=== PATIENT | male | born 1955 | race Caucasian/White ===

== ENCOUNTER 2016-09-01 11:26 | Inpatient (IN) | payer OTHER ==
[2016-09-01] VITALS (10 sets, daily range): BP systolic 127–170; BP diastolic 76–96; PULSE 72–79; RESP 16–19; TEMP 98.2–98.7; O2SAT 95–100
[~2016-09-01 11:26] MED LIST: ASPI81TA81; FISH1000; METF500T PO; MULTTAB6; ZOCO40TA PO
[2016-09-01] MEDS ORDERED: DIPHTH/TETANUS/ACEL PERTUSSIS (BOOSTER) 0.5 ML VIAL/PFS IM ONE (11:35)
[2016-09-01] MEDS ORDERED: MORPHINE SULFATE 8 MG/ML INJ ONE (11:35)
[2016-09-01] MEDS ORDERED: ceFAZolin 2 GM PREMIX 50 ML ONE (11:35)
[2016-09-01] MEDS ORDERED: ONDANSETRON HCL 4 MG/2 ML VIAL ONE (11:35)
[2016-09-01 11:52] LABS: I-STAT POTASSIUM 3.8 MMOL/L (3.5-4.9)
[2016-09-01 11:55] LABS: AUTOMATED NEUTROPHIL # 3.2 TH/MM3 (1.8-7.7); BASOPHIL % 0.4 % (0.0-2.0); EOSINOPHIL # 0.1 TH/MM3 (0-0.4); EOSINOPHIL % 1.1 % (0.0-4.0); HEMO FLAGS DIFF FINAL; LYMPH % 37.9 % (9.0-44.0); LYMPHOCYTE # 2.3 TH/MM3 (1.0-4.8); MEAN CORPUSCULAR HEMOGLOBIN 30.5 PG (27.0-34.0); MEAN CORPUSCULAR HGB CONC 33.9 % (32.0-36.0); MONO % 7.8 % (0.0-8.0); NEUT % 52.8 % (16.0-70.0); PLATELET COUNT 219 TH/MM3 (150-450); RED BLOOD COUNT 4.67 MIL/MM3 (4.50-5.90); RED CELL DISTRIBUTION WIDTH 12.9 % (11.6-17.2); WHITE BLOOD COUNT 6.1 TH/MM3 (4.0-11.0)
[2016-09-01 12:13] LABS: INTERNATIONAL NORMALIZED RATIO 0.9 RATIO; PROTHROMBIN TIME - PATIENT 10.1 SEC (9.8-11.6)
[2016-09-01 12:15] LABS: APTT (PATIENT) 20.5 SEC (24.3-30.1)
[2016-09-01] MEDS ORDERED: SIMV5TAB3 PO (12:17)
[2016-09-01] MEDS ORDERED: METF500T PO (12:17)
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
[2016-09-01] MEDS ORDERED: IOHEXOL 350 MG/ML 10 ML VIAL (for RAD DIAG) IV ONE (12:51)
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
[2016-09-01] MEDS ORDERED: MORPHINE SULFATE 4 MG/ML INJ IV PUSH ONE (13:45)
[2016-09-01] MEDS ORDERED: SODIUM CHLORIDE 0.9% FLUSH 10 ML FLUSH IV FLUSH PRN (14:15)
[2016-09-01] MEDS ORDERED: MISCELLANEOUS NURSING INFORMATION XX SCH (14:15)
[2016-09-01] MEDS ORDERED: CHLORHEXIDINE GLUCONATE 2 % 1 PACK (2 CLOTHS) TOP PRN (14:15)
[2016-09-01] MEDS ORDERED: DEXTROSE 50% IN WATER 50 ML VIAL(D50) IV PUSH PRN (14:30)
[2016-09-01] MEDS ORDERED: GLUCAGON 1 MG/ML VIAL OTHER PRN (14:30)
[2016-09-01] MEDS ORDERED: HYDROmorphone HCL PF 1 MG/ML VIAL IV PUSH PRN (14:30)
[2016-09-01] MEDS ORDERED: NALOXONE HCL 0.4 MG/ML AMP IV PRN (14:30)
[2016-09-01] MEDS ORDERED: HYDROmorphone HCL PCA 6 MG/30 ML IV SCH (14:30)
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
[2016-09-01] MEDS: INSULIN ASPART SUPPLEMENTAL SCALE SQ SCH ×2 (16:00→21:00)
[2016-09-01] MEDS: SODIUM CHLORIDE 0.9% FLUSH 10 ML FLUSH IV FLUSH SCH (21:00)
[2016-09-01] MEDS: PCA - TOTAL MG DILAUDID DELIVERED PER SHIFT OTHER SCH (22:00)
[2016-09-02] VITALS (13 sets, daily range): BP systolic 132–152; BP diastolic 79–98; PULSE 65–80; RESP 8–23; TEMP 97.8–98.3; O2SAT 92–98
[2016-09-02] MEDS: CHLORHEXIDINE GLUCONATE 2 % 1 PACK (2 CLOTHS) TOP SCH (04:00)
[2016-09-02 04:14] LABS: AUTOMATED NEUTROPHIL # 6.2 TH/MM3 (1.8-7.7); BASOPHIL % 0.2 % (0.0-2.0); EOSINOPHIL % 0.1 % (0.0-4.0); HEMATOCRIT 37.2 % (39.0-51.0); HEMO FLAGS DIFF FINAL; MEAN CELL VOLUME 90.5 FL (80.0-100.0); MEAN CORPUSCULAR HEMOGLOBIN 30.3 PG (27.0-34.0); MEAN CORPUSCULAR HGB CONC 33.5 % (32.0-36.0); MONO % 9.3 % (0.0-8.0); NEUT % 78.4 % (16.0-70.0); PLATELET COUNT 185 TH/MM3 (150-450); RED BLOOD COUNT 4.11 MIL/MM3 (4.50-5.90); RED CELL DISTRIBUTION WIDTH 13.1 % (11.6-17.2); WHITE BLOOD COUNT 7.9 TH/MM3 (4.0-11.0)
[2016-09-02 04:34] LABS: BICARBONATE 28.4 MEQ/L (21.0-32.0); POTASSIUM 4.1 MEQ/L (3.5-5.1)
--- NOTE | 2016-09-02 04:52 | RADRPT ---
EXAM DATE/TIME: 09/02/2016 03:39 [facility] COMPARISON: CHEST SINGLE AP, September 01, 2016, 11:21. INDICATIONS : Shortness of breath. MEDICAL HISTORY : Diabetes mellitus type 2. SURGICAL HISTORY : None. ENCOUNTER: Subsequent ACUITY: 2 days PAIN SCORE: Non-responsive. LOCATION: Bilateral chest FINDINGS: A single portable frontal view of the chest shows a left lower lobe infiltrate. This is new. No effus ions. Heart is mildly enlarged but stable. The bony structures are unremarkable. CONCLUSION: Left lower lobe infiltrate and mild cardiomegaly. Monty Perkins Jr., MD on September 02, 2016 at 4:50 Board Certified Radiologist. This report was verified electronically.
[2016-09-02] MEDS: PCA - TOTAL MG DILAUDID DELIVERED PER SHIFT OTHER SCH (05:54)
[2016-09-02] MEDS: INSULIN ASPART SUPPLEMENTAL SCALE SQ SCH ×4 (06:54→21:00)
[2016-09-02] MEDS: ONDANSETRON HCL 4 MG/2 ML VIAL IV PRN ×2 (08:20→13:07)
[2016-09-02] MEDS: SODIUM CHLORIDE 0.9% FLUSH 10 ML FLUSH IV FLUSH SCH ×2 (08:20→20:47)
[2016-09-02] MEDS: LACTULOSE SYRUP 20 GM/30 ML CUP PO SCH (09:37)
[2016-09-02] MEDS: LIDOCAINE HCL 5% PATCH T-DERMAL SCH (09:37)
[2016-09-02] MEDS: FAMOTIDINE 20 MG TAB PO SCH ×2 (09:37→20:47)
[2016-09-02] MEDS: METHOCARBAMOL 500 MG TAB PO SCH ×3 (09:37→22:48)
--- NOTE | 2016-09-02 10:34 | EKG ---
Date Performed: 09/01/2016 Time Performed: 13:01:08 PTAGE: 89 years EKG: Sinus rhythm POSSIBLE LATERAL MYOCARDIAL INFARCTION ABNORMAL ECG INTERPRETATION BASED ON A DEFAULT AGE OF 39 YEAR S NO PREVIOUS TRACING DOCTOR: Chel Clinton Interpretating Date/Time 09/02/2016 10:27:12
[2016-09-02] MEDS ORDERED: oxyCODONE/ACETAMINOPHEN 10 MG/325 MG TAB PO PRN (13:00)
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
[2016-09-02] MEDS: KETOROLAC TROMETHAMINE 30 MG/ML (IVP) VIAL IV PUSH SCH ×2 (16:29→22:48)
[2016-09-02] MEDS ORDERED: MORPHINE SULFATE 4 MG/ML INJ IV PUSH PRN ×2 (16:30)
[2016-09-02] MEDS ORDERED: REMOVE OLD LIDOCAINE PATCH T-DERMAL SCH (21:00)
[2016-09-03] VITALS (7 sets, daily range): BP systolic 115–136; BP diastolic 80–86; PULSE 64–75; RESP 11–19; TEMP 98–98.4; O2SAT 93–98
[2016-09-03] MEDS: CHLORHEXIDINE GLUCONATE 2 % 1 PACK (2 CLOTHS) TOP SCH (04:00)
[2016-09-03 04:39] LABS: AUTOMATED NEUTROPHIL # 5.4 TH/MM3 (1.8-7.7); BASOPHIL % 0.2 % (0.0-2.0); EOSINOPHIL % 0.7 % (0.0-4.0); HEMATOCRIT 37.6 % (39.0-51.0); HEMO FLAGS DIFF FINAL; LYMPH % 13.6 % (9.0-44.0); MEAN CELL VOLUME 90.2 FL (80.0-100.0); MEAN CORPUSCULAR HEMOGLOBIN 31.2 PG (27.0-34.0); MEAN CORPUSCULAR HGB CONC 34.6 % (32.0-36.0); MONO % 9.4 % (0.0-8.0); NEUT % 76.1 % (16.0-70.0); PLATELET COUNT 210 TH/MM3 (150-450); RED BLOOD COUNT 4.17 MIL/MM3 (4.50-5.90); RED CELL DISTRIBUTION WIDTH 13.5 % (11.6-17.2); WHITE BLOOD COUNT 7.1 TH/MM3 (4.0-11.0)
[2016-09-03 05:12] LABS: ALT (GPT) 34 U/L (12-78); ANION GAP 9 MEQ/L (5-15); AST (GOT) 31 U/L (15-37); BICARBONATE 28.2 MEQ/L (21.0-32.0); BLOOD UREA NITROGEN 18 MG/DL (7-18); CHLORIDE 102 MEQ/L (98-107); GLOMERULAR FILTRATION RATE 75 ML/MIN (>89); POTASSIUM 3.8 MEQ/L (3.5-5.1); SODIUM (NA) 139 MEQ/L (136-145)
[2016-09-03 05:14] LABS: ALKALINE PHOSPHATASE 57 U/L (45-117); TOTAL BILIRUBIN ADULT 0.7 MG/DL (0.2-1.0)
[2016-09-03] MEDS: KETOROLAC TROMETHAMINE 30 MG/ML (IVP) VIAL IV PUSH SCH ×2 (05:35→11:56)
--- NOTE | 2016-09-03 06:09 | RADRPT ---
EXAM DATE/TIME: 09/03/2016 04:53 [facility] COMPARISON: CHEST SINGLE AP, September 02, 2016, 3:39. INDICATIONS : Shortness of breath. MEDICAL HISTORY : Diabetes mellitus type II. SURGICAL HISTORY : None. ENCOUNTER: Subsequent ACUITY: 3 days PAIN SCORE: Non-responsive. LOCATION: Bilateral chest FINDINGS: A single portable frontal view of the chest shows no change in the left basilar infiltrate. A new rig ht basilar infiltrate is seen. No effusion is appreciated. Heart is normal in size. CONCLUSION: Stable left and new right basilar infiltrates. Monty Perkins Jr., MD on September 03, 2016 at 6:07 Board Certified Radiologist. This report was verified electronically.
[2016-09-03] MEDS: METHOCARBAMOL 500 MG TAB PO SCH (06:31)
[2016-09-03] MEDS: INSULIN ASPART SUPPLEMENTAL SCALE SQ SCH (06:39)
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
[2016-09-03] MEDS: LIDOCAINE HCL 5% PATCH T-DERMAL SCH (09:00)
[2016-09-03] MEDS: SODIUM CHLORIDE 0.9% FLUSH 10 ML FLUSH IV FLUSH SCH (09:00)
[2016-09-03] MEDS ORDERED: MULTIVITAMINS/MINERALS THERAPEUTIC TAB PO SCH (09:00)
[2016-09-03] MEDS ORDERED: THIAMINE HCL 100 MG TAB PO SCH (09:00)
[2016-09-03] MEDS ORDERED: FOLIC ACID 1 MG TAB PO SCH (09:00)
[2016-09-03] MEDS: ONDANSETRON HCL 4 MG/2 ML VIAL IV PRN (09:03)
[2016-09-03] MEDS: LACTULOSE SYRUP 20 GM/30 ML CUP PO SCH (09:03)
[2016-09-03] MEDS: FAMOTIDINE 20 MG TAB PO SCH (09:04)
[2016-09-03] MEDS ORDERED: PERC5TAB12 PO (10:24)
[2016-09-03] MEDS ORDERED: ACETAMINOPHEN 325 MG TAB PO PRN (12:00)
--- NOTE | 2016-09-03 15:22 | HHI.DS ---
Discharge Summary Admission Date Sep 01, 2016 at 13:51 Discharge Date: Sep 03, 2016 Admitting Diagnosis Multiple rib fractures, scapula fracture, lung contusion Brief History [place] [facility] [place]/BMP: 09/03/16 0414 09/03/16 0414 Significant Findings Laboratory Tests Test 09/01/16 09/02/16 09/03/16 11:33 03:15 04:14 Activated Partial 20.5 SEC Thromboplast Time (24.3-30.1) Bedside Glucose 146 MG/DL (60-95) Red Blood Count 4.11 MIL/MM3 4.17 MIL/MM3 (4.50-5.90) (4.50-5.90) Hemoglobin 12.5 GM/DL (13.0-17.0) Hematocrit 37.2 % 37.6 % (39.0-51.0) (39.0-51.0) Neutrophils (%) (Auto) 78.4 % 76.1 % (16.0-70.0) (16.0-70.0) Monocytes (%) (Auto) 9.3 % (0.0-8.0) 9.4 % (0.0-8.0) Estimat Glomerular Filtration 64 ML/MIN (>89) 75 ML/MIN (>89) Rate Random Glucose 129 MG/DL 134 MG/DL (74-106) (74-106) Calcium Level 8.1 MG/DL (8.5-10.1) Imaging Last Impressions Chest X-Ray 09/03/16 0600 Signed Impressions: Service Date/Time: Saturday, September 03, 2016 04:53 - CONCLUSION: Stable left and new right basilar infiltrates. Monty Perkins Jr., MD Head CT 09/01/16 315 Signed Impressions: Service Date/Time: Thursday, September 01, 2016 11:42 - CONCLUSION: 1. No acute intracranial abnormality is identified. Jordi Cagle MD Chest CT 09/01/16 886 Signed Impressions: Service Date/Time: Thursday, September 01, 2016 11:51 - CONCLUSION: 1. Contusion in the left lower lobe without pneumothorax. 2. Multiple left rib fractures including fractures of the first and second ribs. 3. Fracture of the scapula. 4. Mediastinum intact. Andrea Cagle MD FACR Cervical Spine CT 09/01/16 8338 Signed Impressions: Service Date/Time: Thursday, September 01, 2016 11:48 - CONCLUSION: No acute bony injury in the cervical spine Bladimir Membreno MD Abdomen/Pelvis CT 09/01/16 1138 Signed Impressions: Service Date/Time: Thursday, September 01, 2016 11:51 - CONCLUSION: 1. Contusion and/or aspiration in the left lower lobe. 2. Degenerative changes in the lumbar spine and both SI joints. 3. Previous abdominal surgery about the second portion of the duodenum. Negative for an acute traumatic injury. Andrea Cagle MD FACR Shoulder X-Ray 09/01/16 0000 Signed Impressions: Service Date/Time: Thursday, September 01, 2016 11:21 - CONCLUSION: Abnormal left shoulder. Andrea Cagle MD FACR Pelvis X-Ray 09/01/16 0000 Signed Impressions: Service Date/Time: Thursday, September 01, 2016 11:21 - CONCLUSION: Limited visualization of the bony pelvis, however no definite acute bony injury Bladimir Membreno MD Elbow X-Ray 09/01/16 0000 Signed Impressions: Service Date/Time: Thursday, September 01, 2016 14:04 - CONCLUSION: 1. No acute bony abnormality of the left elbow identified. Jordi Cagle MD PE at Discharge GENERAL: 61-year-old well-nourished, well developed male OOB in chair. SKIN: Warm and dry. HEAD: Normocephalic. ENT: No nasal bleeding or discharge. Mucous membranes pink and moist. NECK: Trachea midline. No JVD. CARDIOVASCULAR: Regular rate and rhythm. RESPIRATORY: No accessory muscle use. Lungs clear and diminished to auscultation. Breath sounds equal bilaterally. GASTROINTESTINAL: Abdomen soft, non-tender, nondistended. + BS. MUSCULOSKELETAL: Extremities without cyanosis, or edema. No obvious deformities. Left arm in sling. NEUROLOGICAL: Awake and alert. Normal speech. [place] [facility] [place]. Unknown circumstances. GCS 15, but repetitious. INJURIES: LEFT lung contusion LEFT rib fxs (multiple) LEFT scapula fx (non-op) PMHx: DM Diet: Diabetic, tolerating Pulmonary: IS, encouraged home use. Pain: Percocet, Robaxin, Lidoderm patch. Pain controlled Activity: OOB, PT, OT evaluated. No home PT needs. NWB LEFT arm- wear sling for 3-4 weeks GI: Pepcid Bowel: Lactulose DVT: SCDs Orthopedics cleared for discharge. Follow-up as outpatient. Follow-up with PCP as outpatient. Plan of care discussed with patient at bedside. Patient is clear from trauma surgery standpoint to safely discharge home. Pt Condition on Discharge: Stable Discharge Disposition: Discharge Home Discharge Instructions DIET: Follow Instructions for: Diabetic Diet Activities you can perform: See Additionl Instruction Activities to Avoid: Weight Bearing Other Activity Instructions: Non-weight bearing left arm. Wear sling 3-4 weeks. Courtney Ceballos Sep 03, 2016 15:22
[2016-09-30] MEDS ORDERED: LISI-515 PO (09:11)
[2016-10-24] MEDS ORDERED: TEST200I13 IM (10:01)
[2016-10-30] MEDS ORDERED: TEST200I13 IM (09:32)
--- NOTE | 2016-11-03 12:30 | HHI.HP ---
History of Present Illness Primary Care Physician Richardson Mukherjee MD Admission Diagnosis Multiple rib fractures, scapula fracture, lung contusion Diagnoses: History of Present Illness This is a delayed entry for trauma alert 09/01/2016. 61 y.o male involved in [facility] [place].Trauma alert,c/o pain l chest,repetitive questions GCS 15,neuro intact,HD stable Review of Systems Constitutional: DENIES: Diaphoretic episodes, Fatigue, Fever, Weight gain, Weight loss, Chills, Dizziness, Change in appetite, Night Sweats Endocrine: DENIES: Heat/cold intolerance, Polydipsia, Polyuria, Polyphagia Eyes: DENIES: Blurred vision, Diplopia, Eye inflammation, Eye pain, Vision loss , Photosensitivity, Double Vision Ears, nose, mouth, throat: DENIES: Tinnitus, Hearing loss, Vertigo, Nasal discharge, Oral lesions, Throat pain, Hoarseness, Ear Pain, Running Nose, Epistaxis, Sinus Pain, Toothache, Odynophagia Respiratory: DENIES: Apneas, Cough, Snoring, Wheezing, Hemoptysis, Sputum production, Shortness of breath Cardiovascular: DENIES: Chest pain, Palpitations, Syncope, Dyspnea on Exertion , PND, Lower Extremity Edema, Orthopnea, Claudication Gastrointestinal: DENIES: Abdominal pain, Black stools, Bloody stools, Constipation, Diarrhea, Nausea, Vomiting, Difficulty Swallowing, Anorexia Genitourinary: DENIES: Sexual dysfunction, Urinary frequency, Urinary incontinence, Urgency, Hematuria, Dysuria, Nocturia, Penile Discharge, Testicular Pain, Testicular Swelling Musculoskeletal: DENIES: Joint pain, Muscle aches, Stiffness, Joint Swelling, Back pain, Neck pain Integumentary: DENIES: Abnormal pigmentation, Nail changes, Pruritus, Rash Hematologic/lymphatic: DENIES: Bruising, Lymphadenopathy Immunologic/allergic: DENIES: Eczema, Urticaria Psychiatric: DENIES: Anxiety, Confusion, Mood changes, Depression, Hallucinations, Agitation, Suicidal Ideation, Homicidal Ideation, Delusions Past Family Social History Allergies: Coded Allergies: No Known Allergies (Verified , 10/30/16) Past Medical History DM2 Past Surgical History eye surgery Reported Medications simvastatin,metformin Family History none Social History deaf right ear Physical Exam Physical Exam GENERAL: This is a well-nourished, well-developed patient, in no apparent distress. SKIN: No rashes, ecchymoses or lesions. Cool and dry. HEAD: Atraumatic. Normocephalic. No temporal or scalp tenderness. EYES: Pupils equal round and reactive. Extraocular motions intact. No scleral icterus. No injection or drainage. ENT: Nose without bleeding, purulent drainage or septal hematoma. Throat without erythema, tonsillar hypertrophy or exudate. Uvula midline. Airway patent. NECK: Trachea midline. No JVD or lymphadenopathy. Supple, nontender, no meningeal signs. CARDIOVASCULAR: Regular rate and rhythm without murmurs, gallops, or rubs. RESPIRATORY: Clear to auscultation. Breath sounds equal bilaterally. No wheezes , rales, or rhonchi. tender left thorax GASTROINTESTINAL: Abdomen soft, non-tender, nondistended. No hepato-splenomegaly , or palpable masses. No guarding. MUSCULOSKELETAL: Extremities without clubbing, cyanosis, or edema. No joint tenderness, effusion, or edema noted. No calf tenderness. NEUROLOGICAL: Awake and alert. Cranial nerves II through XII intact. Motor and sensory grossly within normal limits. Five out of 5 muscle strength in all muscle groups. Normal speech. Imaging C CAP-left multiple rib fx,scapula fx Assessment and Plan Assessment and Plan L multiple rib fx left scapula fx admit to ICU for observation pain control IS ortho consult Patricia Cid MD Nov 03, 2016 12:30
== END 2016-09-03 12:41 | disposition home or self-care (01) | DRG 184 ==
LOC: NEPI 11:26 → EDBD 13:51 → MERGE 13:51 → NEDA 13:51 → N03A 17:10
PROVIDERS: ADMIT Surgery Trauma Surgery; ATTEND Surgery Trauma Surgery
DX: S22.42XA Multiple fractures of ribs, left side, initial encounter for closed fracture (principal); S27.321A Contusion of lung, unilateral, initial encounter; S42.102A Fracture of unspecified part of scapula, left shoulder, initial encounter for closed fracture; S50.312A Abrasion of left elbow, initial encounter; S40.212A Abrasion of left shoulder, initial encounter; V29.9XXA Motorcycle rider (driver) (passenger) injured in unspecified traffic accident, initial encounter; R40.2410 Glasgow coma scale score 13-15, unspecified time; E11.9 Type 2 diabetes mellitus without complications; H91.91 Unspecified hearing loss, right ear; Z97.0 Presence of artificial eye; Z79.84 Long term (current) use of oral hypoglycemic drugs
CPT/HCPCS: 70450; 71010; 71260; 72125; 72170; 73020; 73070; 74177; 80048; 80053; 82435; 82565; 82947; 82948; 84132; 84295; 84520; 85025; 85610; 85730; 86850; 86900; 86901; 90471; 90715; 93005; 94150; 94667; 96374; 96375; 96376; 99291; G0390; J0690; J1170; J1815; J1885; J2270; J2405; Q9967

== ENCOUNTER → 2017-04-30 | Day surgery (SDC) | payer OTHER ==
[~2017-04-30] VITALS: Ht 188 cm; Wt 95.0 kg
[~2017-04-30] MED LIST changes: -ASPI81TA81; +ASPI81TA81 PO; +BUPIVACAINE HCL PF 0.5% 30 ML VIAL ONE; +CEPH-460 PO; +CHLORHEXIDINE GLUCONATE 2 % 1 PACK (2 CLOTHS) TOPICAL PRN; +CIPR-9 PO; +DEXAMETHASONE SOD PHOS 4 MG/ML VIAL ONE; +FAMOTIDINE 20 MG/2 ML VIAL ONE; -FISH1000; +FISH1000 PO; +HYDR-3288 PO; +KETOROLAC TROMETHAMINE 30 MG/ML (IVP) VIAL ONE; +LACTATED RINGER'S 1000 ML IV PRN; +LIDOCAINE HCL 2% 50 ML VIAL ONE; +METOPROLOL TARTRATE 25 MG TAB PO PRN; -MULTTAB6; +MULTTAB67 PO; +NEOMYCIN/POLYMYXIN 1 ML G.U. IRRIGANT ONE; +POVIDONE IODINE 5% (ANTISEPSIS KIT) 4 APPLICATIONS EACH NARE PRN; +SODIUM CHLORID 0.9% 500 ML IV PRN; +TENI5INJ IM; +TEST200I13 IM; +TRIAMCINOLONE ACETONIDE 40 MG/ML VIAL ONE; +ceFAZolin 2 GM PREMIX 50 ML IV SCH
[2017-04-30 11:12] VITALS: PULSE 83
--- NOTE | 2017-04-30 11:58 | MP ---
cc: MILTON DILLARD III, M.D. DATE OF SURGERY 04/30/2017 PREOPERATIVE DIAGNOSES 1. Left anterior interosseous nerve syndrome. 2. Left carpal tunnel syndrome. PROCEDURE 1. Left anterior interosseous nerve release. 2. Left open carpal tunnel release. SURGEON Milton Dillard III, MD PROCEDURE The patient was brought to the operating room and placed supine upon the operating table. After the correct site and side of the surgery were verified by the members of each team in the room multiple times including the patient and myself and, after adequate preoperative markings and preoperative written consent were verified by everyone and, after adequate preoperative time-out was performed to everyone's satisfaction, after adequate general anesthesia had been achieved, the left upper extremity was prepped and draped in the usual sterile surgical fashion. Diagrams were made. The limb was exsanguinated with a gentle Herb wrap and a highly placed, well-padded axillary tourniquet was inflated to 200 mmHg for a total of 70 minutes. A lazy S-shaped incision in the proximal volar forearm was made and carried down through the skin and subcutaneous tissue, crossing bands of fibers and nerves fibers were protected as much as possible. The brachioradialis was reflected laterally. The lacertus fibrosus was divided. This was not insignificant. The brachial artery was then identified and a median nerve medial to it down deep was identified as well and traced distally. There were minimal crossing bands of tissue until the deep head of the pronator was identified and this had a very constricting band at its proximal-most aspect and this was divided completely and released in its entirety. The anterior interosseous nerve was found to be coming off just proximal to it. There were no other obvious crossing bands of tissue proximally but down where the proximal tendinous band of the flexor digitorum superficialis muscle had a small area that may cause constriction and this was released. Bipolar electrocautery was used along the way. At this time the superficial head of the tendon was addressed with a step lengthening procedure in the usual fashion and this also placed significant constriction on the nerve which was very noticeable after the lengthening. There was no other anatomic abnormality identified. Thorough irrigation with saline was performed. The skin edges were reapproximated using deep subcutaneous 3-0 Vicryl sutures and then the skin edges themselves with running 4-0 nylon. A longitudinal incision was made at the base of the palm and carried down through the skin and subcutaneous tissue. Blunt dissection was performed palmar fascia was retracted in opposite directions. The transverse carpal ligament was identified and divided in its entirety in its midline from its proximal-most to its distal-most extents, completely freeing the carpal tunnel and its contents which had a moderately hypertrophic tenosynovium. They were completely released. There were no other anatomic abnormalities identified and no signs of any mass effect. Thorough irrigation with saline was performed and the skin edges reapproximated using running 4-0 nylon suture. The hand and arm were thoroughly cleansed and dried. Additional local anesthetic was injected in the proximal wound for postoperative pain control. Betadine and Adaptic dressing was applied on top of the wounds followed by a bulky, well-padded, well-molded, long-arm posterior elbow splint with the elbow flexed 45 degrees in neutral to slightly pronated position. The axillary tourniquet was released and the hand and all fingers became immediately soft, pink, warm and had brisk capillary refill of less than 2 seconds. The patient was awakened from anesthesia and transferred to the Post-Anesthesia Care Unit awake and in stable condition at the end of the case. Sponge, needle and instrument counts were correct at the end of the case as reported by the nurses in the room. MD RICHARD Kebede III/ARIE /11:18 AM /11:39 AM
[2017-04-30 12:00] VITALS: PULSE 67; TEMP 97.7
[2017-04-30 12:40] VITALS: BP 142/93; PULSE 68; RESP 14; O2SAT 95
== END | disposition home or self-care (01) ==
LOC: PHSDC 07:09
PROVIDERS: ATTEND Orthopaedic Surgery Hand Surgery
DX: G56.02 Carpal tunnel syndrome, left upper limb (principal); G56.12 Other lesions of median nerve, left upper limb; E11.9 Type 2 diabetes mellitus without complications; I10 Essential (primary) hypertension; E78.5 Hyperlipidemia, unspecified
CPT/HCPCS: 01810; 64708; 64721; J0690; J1100; J1885; J7120; J3301